=== PATIENT | male | born 1980 | race Hispanic/Latino ===

== ENCOUNTER 2017-10-01 04:15 | Emergency (ER) | payer OTHER ==
--- NOTE | 2017-10-01 05:18 | XRay Report ---
FINAL REPORT EXAM: XR RIBS UNI W PA CHEST 3+V LT HISTORY: Lt rib pain/ hx of cracking sound TECHNIQUE: PA chest radiograph with AP and oblique views of the left rib cage PRIORS: None. FINDINGS: No mediastinal shift. Cardiac silhouette is not enlarged. No pneumothorax, effusion, or focal pulmonary opacity. No displaced rib fractures. IMPRESSION: No acute pulmonary finding or displaced rib fracture identified.
[2017-10-01] MEDS ORDERED: MOTRIN ONE (05:28)
[2017-10-01] MEDS ORDERED: MOTRIN PO ONE (05:29)
[2017-10-01] MEDS ORDERED: ULTRAM PO ONE (06:24)
[2017-10-01] MEDS ORDERED: ULTRAM ONE (06:27)
--- NOTE | 2017-10-01 06:32 | Emergency Department Report ---
<LEN SANDOVAL - Last Filed: 10/01/17 06:28> ED General Adult HPI - General Chief complaint: Abdominal Pain Stated complaint: LT FLANK PAIN Source: patient Mode of arrival: Ambulatory Limitations: No Limitations - History of Present Illness Initial comments: 37-year-old male comes to the emergency room complaining of left rib pain to left back pain. Patient reports that the pain is sharp and stabbing. He reports that last Sunday he was leaning into a truck and hurt cracks to his side. She reports that pain is worse with deep breath and certain positions. He denies any past medical history he took ibuprofen 800 mg which she said helped some but is not helping today. He denies any medications to take on a daily basis and has no known drug allergies. -: days(s) (6) Location: chest, back Radiation: back Severity scale (0 -10): 10 Quality: stabbing, sharp, constant Consistency: constant Improves with: none Worsens with: movement, other (deep breathing) Associated Symptoms: denies other symptoms - Related Data Previous Rx's Medication Instructions Recorded Last Taken Type Ketorolac [Toradol] 10 mg PO Q8H PRN #12 tablet 10/01/17 Unknown Rx Allergies Allergy/AdvReac Type Severity Reaction Status Date / Time No Known Allergies Allergy Verified 10/01/17 04:29 ED Review of Systems ROS: Stated complaint: LT FLANK PAIN Other details as noted in HPI Respiratory: SOB with exertion Cardiovascular: chest pain (rib pain) Endocrine: no symptoms reported Gastrointestinal: denies: abdominal pain, nausea, diarrhea Genitourinary: denies: urgency, dysuria Musculoskeletal: back pain (left side) Skin: denies: rash, lesions Neurological: denies: headache, weakness, paresthesias Psychiatric: denies: anxiety, depression Hematological/Lymphatic: denies: easy bleeding, easy bruising ED Past Medical Hx - Past Medical History Previous Medical History?: No - Surgical History Past Surgical History?: No - Social History Smoking Status: Current Every Day Smoker Substance Use Type: Alcohol - Medications Home Medications: Home Medications Medication Instructions Recorded Confirmed Last Taken Type Ketorolac [Toradol] 10 mg PO Q8H PRN #12 tablet 10/01/17 Unknown Rx ED Physical Exam - General Limitations: No Limitations General appearance: alert, other (pierced to be uncomfortable in pain) - Head Head exam: Present: atraumatic, normocephalic - Eye Eye exam: Present: normal appearance - ENT ENT exam: Present: mucous membranes moist - Neck Neck exam: Present: normal inspection - Respiratory Respiratory exam: Present: chest wall tenderness (left chest) - Cardiovascular Cardiovascular Exam: Present: regular rate, normal rhythm. Absent: systolic murmur, diastolic murmur, rubs, gallop - GI/Abdominal GI/Abdominal exam: Present: soft, normal bowel sounds - Extremities Exam Extremities exam: Present: normal inspection - Neurological Exam Neurological exam: Present: alert, oriented X3 - Psychiatric Psychiatric exam: Present: anxious - Skin Skin exam: Present: intact, diaphoretic ED Course Vital Signs 10/01/17 10/01/17 10/01/17 04:16 04:24 08:37 Temperature 98.1 F 98.1 F 97.9 F Pulse Rate 85 90 58 L Respiratory 18 18 18 Rate Blood Pressure 130/90 130/90 Blood Pressure 106/60 [Left] O2 Sat by Pulse 97 97 Oximetry ED Medical Decision Making - Medical Decision Making Patient's been evaluated by this provider fast track. Chest x-ray shows normal examination. We will check a d-dimer and troponin and EKG. Critical care attestation.: If time is entered above; I have spent that time in minutes in the direct care of this critically ill patient, excluding procedure time. ED Disposition Clinical Impression: Rib pain on left side Disposition: DC-01 TO HOME OR SELFCARE Condition: Stable Instructions: Musculoskeletal Pain (ED) Additional Instructions: Follow-up with your primary care physician in 2-3 days IF Symptoms worsen ,return to the emergency room Take medication as prescribed. Prescriptions: Ketorolac [Toradol] 10 mg PO Q8H PRN #12 tablet PRN Reason: Pain Referrals: [facility] [Outside] - 2-3 Days PRIMARY CARE, [Primary Care Provider] - 2-3 Days Forms: Work/School Release Form(ED) <ALEJANDRA SANTOS - Last Filed: 10/01/17 11:28> ED Course - Reevaluation(s) Reevaluation #1: 10/01/17 07:46 D-dimer is negative and CBC, CMP stable. I spoke with Dr. tomas regarding results and he he came to examine patient. It was decided due to patient still with pain and tenderness to palpate to right anterior rib cage below breast patient will have CT of the abdomen and pelvis with IV contrast to rule out any spleen abnormality. This was discussed patient disease in agreement Reevaluation #2: 10/01/17 09:47 Patient received Percocet 5/325 2 tablets by mouth which relieved this pain. Pain is not to 2 out of 10. Patient currently in CT scan. Reevaluation #3: 10/01/17 11:[address] Jiménez regarding the patient's CT scan of the abdomen and pelvis with IV contrast which came back with normal findings. I discussed results patient and told him that he will need to follow-up with his primary care physician in 2-3 days. He was understanding and and discharged home with prescription for Toradol. ED Medical Decision Making - Lab Data Result diagrams: 10/01/17 06:49 10/01/17 06:49 Lab Results 10/01/17 10/01/17 10/01/17 Range/Units 06:49 06:49 06:49 WBC 8.2 (4.5-11.0) K/mm3 RBC 4.87 (3.65-5.03) M/mm3 Hgb 14.9 (11.8-15.2) gm/dl Hct 44.1 (35.5-45.6) % MCV 91 (84-94) fl MCH 31 (28-32) pg MCHC 34 (32-34) % RDW 13.4 (13.2-15.2) % Plt Count 190 (140-440) K/mm3 Lymph % (Auto) 29.0 (13.4-35.0) % Cowley % (Auto) 10.7 H (0.0-7.3) % Eos % (Auto) 1.4 (0.0-4.3) % Baso % (Auto) 0.5 (0.0-1.8) % Lymph # 2.4 (1.2-5.4) K/mm3 Cowley # 0.9 H (0.0-0.8) K/mm3 Eos # 0.1 (0.0-0.4) K/mm3 Baso # 0.0 (0.0-0.1) K/mm3 Seg Neutrophils % 58.4 (40.0-70.0) % Seg Neutrophils # 4.8 (1.8-7.7) K/mm3 D-Dimer < 135.00 (0-234) ng/mlDDU Sodium 139 (137-145) mmol/L Potassium 3.8 (3.6-5.0) mmol/L Chloride 101.7 (98-107) mmol/L Carbon Dioxide 26 (22-30) mmol/L Anion Gap 15 mmol/L BUN 13 (9-20) mg/dL Creatinine 0.8 (0.8-1.5) mg/dL Estimated GFR > 60 ml/min BUN/Creatinine Ratio 16 % Glucose 95 (75-100) mg/dL Calcium 9.0 (8.4-10.2) mg/dL Total Bilirubin 0.40 (0.1-1.2) mg/dL AST 14 (5-40) units/L ALT 24 (7-56) units/L Alkaline Phosphatase 70 (35-129) units/L Troponin T < 0.010 (0.00-0.029) ng/mL Total Protein 6.8 (6.3-8.2) g/dL Albumin 4.2 (3.9-5) g/dL Albumin/Globulin Ratio 1.6 % - Radiology Data CT scan of the abdomen and pelvis with negative finding X-ray of the ribs 3 views left negative finding Patient: NAKUL SLAUGHTER MR#: [id number] : 1980 Acct:[id number] Age/Sex: 37 / M ADM Date: 10/01/17 Loc: ED Attending Dr: Ordering Physician: JAYDA HARPER Date of Service: 10/01/17 Procedure(s): CT abdomen pelvis w con Accession Number(s): [id number] cc: JAYAD HARPER CT abdomen and pelvis with contrast: Left upper quadrant pain. Following intravenous contrast injection transverse images are obtained from lower chest to the ischium with coronal and sagittal 2-D reformatted images. Images of the lung bases demonstrates focal areas of mild atelectasis on the left. The abdominal and retroperitoneal structures are anatomically unremarkable. There is a moderate degree of mesenteric fat noted. The abdominal aorta is normal in size and contour. The unopacified bowel and mesentery is unremarkable. There is mild spondylosis of the thoracolumbar bodies. Impressions: No acute findings. Transcribed By: RML Dictated By: SUSAN COULTER MD Electronically Authenticated By: SUSAN COULTER MD Signed Date/Time: 10/01/17942 DD/ 8 TD/TT: 10/01/17942 Patient: NAKUL SLAUGHTER MR#: [id number] : 1980 Acct:[id number] Age/Sex: 37 / M ADM Date: 10/01/17 Loc: ED Attending Dr: Ordering Physician: JAYDA MENA Date of Service: 10/01/17 Procedure(s): XR ribs UNI w PA chest 3+V LT Accession Number(s): [id number] cc: JAYDA MENA Fluoro Time In Minutes: FINAL REPORT EXAM: XR RIBS UNI W PA CHEST 3+V LT HISTORY: Lt rib pain/ hx of cracking sound ED Disposition Is pt being admited?: No Does the pt Need Aspirin: No
[2017-10-01] MEDS ORDERED: ASPIRIN PO ONE (06:33)
[2017-10-01 06:58] LABS: Basophils % (Auto) 0.5 % (0.0-1.8); Eosinophils # (Auto) 0.1 K/mm3 (0.0-0.4); Eosinophils % (Auto) 1.4 % (0.0-4.3); Hematocrit 44.1 % (35.5-45.6); Hemoglobin 14.9 gm/dl (11.8-15.2); Lymphocytes # (Auto) 2.4 K/mm3 (1.2-5.4); Mean Corpuscular HGB Conc 34 % (32-34); Mean Corpuscular Hemoglobin 31 pg (28-32); Mean Corpuscular Volume 91 fl (84-94); Monocytes # (Auto) 0.9 K/mm3 (0.0-0.8); Monocytes % (Auto) 10.7 % (0.0-7.3); Platelet Count 190 K/mm3 (140-440); Red Blood Count 4.87 M/mm3 (3.65-5.03); Red Cell Distribution Width 13.4 % (13.2-15.2)
[2017-10-01 07:35] LABS: Alanine Aminotransferase 24 units/L (7-56); Albumin 4.2 g/dL (3.9-5); BUN/Creatinine Ratio 16; Blood Urea Nitrogen 13 mg/dL (9-20); Hemolysis Index 7
[2017-10-01] MEDS ORDERED: PERCOCET 5/325 PO ONE (07:52)
[2017-10-01 08:38] VITALS: BP 106/60
--- NOTE | 2017-10-01 10:04 | Cat Scan Report ---
CT abdomen and pelvis with contrast: Left upper quadrant pain. Following intravenous contrast injection transverse images are obtained from lower chest to the ischium with coronal and sagittal 2-D reformatted images. Images of the lung bases demonstrates focal areas of mild atelectasis on the left. The abdominal and retroperitoneal structures are anatomically unremarkable. There is a moderate degree of mesenteric fat noted. The abdominal aorta is normal in size and contour. The unopacified bowel and mesentery is unremarkable. There is mild spondylosis of the thoracolumbar bodies. Impressions: No acute findings.
== END 2017-10-01 11:35 | disposition home or self-care (01) ==
LOC: ED 04:15
DX: R07.81 Pleurodynia (principal); F17.200 Nicotine dependence, unspecified, uncomplicated; R10.30 Lower abdominal pain, unspecified
CPT/HCPCS: 36415; 71101; 74177; 80053; 84484; 85025; 85379; 93005; 93010; 99284; Q9967